=== PATIENT | female | born 1965 | race African-American/Black ===

== ENCOUNTER → 2019-04-25 | Outpatient (CLI) | payer BC | LOC: RAD 11:09 | DX: Z12.31 Encounter for screening mammogram for malignant neoplasm of breast (principal) ==

== ENCOUNTER → 2019-05-02 | Outpatient (CLI) | payer BC | LOC: ULTRA 01:10 | DX: N60.01 Solitary cyst of right breast (principal); N60.02 Solitary cyst of left breast ==

== ENCOUNTER → 2020-07-23 | Outpatient (CLI) | payer BC | LOC: RAD 07-09 10:52 → BC 13:19 | PROVIDERS: ATTEND Nurse Practitioner | DX: Z12.31 Encounter for screening mammogram for malignant neoplasm of breast (principal) ==

== ENCOUNTER → 2020-08-05 | Outpatient (CLI) | payer BC | LOC: ULTRA 11:33 | PROVIDERS: ATTEND Nurse Practitioner | DX: N63.20 Unspecified lump in the left breast, unspecified quadrant (principal) ==

== ENCOUNTER → 2021-10-27 | Outpatient (CLI) | payer BC | LOC: BC → EDBD → BC 10-17 14:01 | PROVIDERS: ATTEND Family Medicine | DX: Z12.31 Encounter for screening mammogram for malignant neoplasm of breast (principal); N64.89 Other specified disorders of breast ==

== ENCOUNTER → 2021-10-27 | Outpatient (CLI) | payer OTHER | LOC: CAT 09:11 | PROVIDERS: ATTEND Nurse Practitioner | DX: Z13.6 Encounter for screening for cardiovascular disorders (principal) ==